=== PATIENT | male | born 1960 | race Caucasian/White ===

== ENCOUNTER 2021-05-07 10:58 | Day surgery (SDC) | payer BC ==
[~2021-05-07] VITALS: Ht 193 cm; Wt 150.0 kg
[~2021-05-07 10:58] MED LIST: AMIO200T6 PO; APIX5TAB PO; CITA20TA6 PO; ERGO800010 PO; IV RINGERS,LACTATED 1000ML 1,000 ML IV SCH; LISI-517 PO; METO-247 PO
[2021-05-07 11:36] VITALS: BP 102/58
[2021-05-07 11:51] LABS: HEMATOCRIT 41.1 % (39.0-53.0); HEMOGLOBIN 14.3 g/dL (13.0-17.5); RED BLOOD COUNT 4.34 x10^6/uL (4.30-5.70); RED CELL DISTRIBUTION WIDTH 13.4 % (11.5-14.5); WHITE BLOOD COUNT 4.3 x10^3/uL (4.0-11.0)
--- NOTE | 2021-05-07 11:55 | EKG ---
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
[2021-05-07 12:09] LABS: CALCIUM 8.2 mg/dL (8.5-10.1); CREATININE 1.3 mg/dL (0.7-1.3); GFR 56.3; POTASSIUM 4.1 mmol/L (3.5-5.1)
--- NOTE | 2021-05-07 12:58 | PDOC4 ---
Procedure Note Procedure: External cardioversion Indications: Atrial fibrillation Complications: None Procedural Details: And informed consent was obtained from patient. Anesthesiology team administered intravenous propofol for deep sedation. Patient was then given 200 J of synchronized biphasic DC shock therapy with successful conversion of rhythm from atrial fibrillation to sinus rhythm. He tolerated the procedure well. He was hemodynamically stable without any neurological deficits at the end of procedure. Conclusions: Successful external cardioversion of patient rhythm from atrial fibrillation to sinus rhythm. QUYNH CARVALHO MD May 07, 2021 12:58
[2021-05-07 13:29] VITALS: BP 89/59
[2021-05-07] MEDS ORDERED: PROPOFOL 10 MG/ML (20ML) VIAL. IV ONE (13:54)
[2021-05-07] MEDS ORDERED: LIDOCAINE 2% PF 5 ML VIAL. ONE (13:54)
== END 2021-05-07 13:50 | disposition home or self-care (01) ==
LOC: SURG 10:58
PROVIDERS: ATTEND Internal Medicine Cardiovascular Disease
DX: I48.91 Unspecified atrial fibrillation (principal); I10 Essential (primary) hypertension; G47.30 Sleep apnea, unspecified; E66.9 Obesity, unspecified; K21.9 Gastro-esophageal reflux disease without esophagitis; F41.9 Anxiety disorder, unspecified; F32.9 Major depressive disorder, single episode, unspecified; Z72.89 Other problems related to lifestyle; Z79.899 Other long term (current) drug therapy; Z98.890 Other specified postprocedural states
CPT/HCPCS: 36415; 80048; 85027; 85610; 85730; 92960; 93005; J2704

== ENCOUNTER 2021-06-07 08:57 | Outpatient (CLI) | payer BC ==
[2021-06-07] VITALS (12 sets, daily range): BP systolic 100–113; BP diastolic 60–74
[~2021-06-07] VITALS: Ht 188 cm; Wt 142.7 kg
[~2021-06-07 08:57] MED LIST changes: +AMIO200T53 PO; -AMIO200T6 PO; -IV RINGERS,LACTATED 1000ML 1,000 ML IV SCH; -LISI-517 PO; +LISI5TAB15 PO
--- NOTE | 2021-06-07 09:36 | PDOC ---
MODERATE SEDATION ASSESSMENT RISKS/ALTERNATIVES Risks/Alternatives Risks and alternatives of this type of sedation and procedure discussed with: RISK/ALTERNATIVES: Patient H & P ON CHART H & P H & P on chart and reviewed for co-morbid conditions and appropriate labs. H&P ON CHART: Yes STATUS PREG STATUS ASSESSED: N/A MEDS/ALLERGIES REVIEWED Meds/Allergies Reviewed Medications and Allergies including time and route of recently administered narcotics and sedatives. MEDS/ALLERGIES REVIEWED: Yes ASA RATING ASA RATING: II AIRWAY ASSESSMENT Airway Assessment Airway patency, oral function limitations, presence of caps, crowns, dentures, partials, and ability to extend neck assessed. AIRWAY ASSESSMENT: Yes MALLAMPATI SCORE MALLAMPATI SCORE: II PRE-SEDATION ASSESSMENT PRE-SEDATION ASSESSMENT: Yes QUYNH CARVALHO MD Jun 07, 2021 09:36
[2021-06-07] MEDS ORDERED: LIDOCAINE 1% PF 2 ML VIAL. ONE (09:39)
[2021-06-07] MEDS ORDERED: IODIXANOL 320 MG/ML 100 ML VIAL. ONE (09:39)
[2021-06-07] MEDS ORDERED: fentaNYL PF VIAL 100 MCG/2 ML VIAL ONE (09:53)
[2021-06-07] MEDS ORDERED: NITROGLYCERIN 200 MCG/2 ML SYRINGE FOR CATH/VASC LAB. ONE (09:53)
[2021-06-07] MEDS ORDERED: HEPARIN for IV BOLUS 10,000 UNIT/10 ML VIAL. ONE (09:53)
[2021-06-07] MEDS ORDERED: MIDAZOLAM HCL/PF 2 MG/2 ML VIAL. ONE ×2 (09:53→10:12)
[2021-06-07] MEDS ORDERED: VERAPAMIL 5 MG/2 ML VIAL. ONE (09:53)
[2021-06-07] MEDS ORDERED: LIDOCAINE 1% Multi-Dose 20 ML VIAL. ONE ×2 (10:29)
[2021-06-07] MEDS ORDERED: LIDOCAINE 1% PF 2 ML VIAL. INJ ONE (10:30)
[2021-06-07] MEDS ORDERED: fentaNYL PF VIAL 100 MCG/2 ML VIAL IV ONE (10:30)
[2021-06-07] MEDS ORDERED: HEPARIN for IV BOLUS 10,000 UNIT/10 ML VIAL. IART ONE (10:30)
[2021-06-07] MEDS ORDERED: MIDAZOLAM HCL/PF 2 MG/2 ML VIAL. IV ONE (10:30)
[2021-06-07] MEDS ORDERED: VERAPAMIL 5 MG/2 ML VIAL. IART ONE (10:30)
[2021-06-07] MEDS ORDERED: NITROGLYCERIN 200 MCG/2 ML SYRINGE FOR CATH/VASC LAB. IART ONE (10:30)
[2021-06-07] MEDS ORDERED: CONTRAST GIVEN. MC PRN (10:30)
[2021-06-07] MEDS ORDERED: IODIXANOL 320 MG/ML 100 ML VIAL. IART ONE (10:30)
[2021-06-07] MEDS ORDERED: LIDOCAINE 1% Multi-Dose 20 ML VIAL. INJ ONE (10:45)
[2021-06-07] MEDS ORDERED: IV 1/2 NORMAL SALINE 1,000 ML IV SCH (11:00)
--- NOTE | 2021-06-07 11:23 | CARD ---
MR#: [id number] Date of Study: 06/07/2021 Ordering Physician: QUYNH CARVALHO, Referring Physician: QUYNH CARVALHO Tech: RT Deanne(R) APPROVED REPORT Technologist: RT Deanne(R) Nurse: Alexus Harris RN Procedure(s) performed: Left heart catheterization, selective coronary angiography and left ventricul ography FL TIME: 12.3 MIN DOSE: 131 GYCM2 CONTRAST: 128 ML MODERATE SEDATION: 53 MINUTES INDICATION The indication(s) include : Atrial fibrillation, dyspnea on exertion and positive stress test. [facility] Clinical Frailty Scale [facility] Clinical Frailty Scale: Mildly Frail Heart Failure Heart Failure: No CASE TECHNIQUE IV conscious sedation was used throughout procedure with appropriate monitoring and was performed in the presence of a registered nurse who was an independent trained observer other than the physician p erforming the procedure. During this case, Fluoroscopy and low osmolar contrast were used for imaging . Specimen(s) Removed: No Estimated Blood loss: 15 cc's. PROCEDURE NARRATIVE After explaining the risk, benefits and alternative options, informed consent was obtained from patie nt. Patient was brought to the cardiac Urban Planner and his right wrist was prepped and draped in the us ual fashion after confirming a positive modified Ar's test. Vascular ultrasound guidance was used to obtain access in the right radial artery and 6 Prydeinig sheath was inserted. Several attempts to a dvance catheters including 6 Prydeinig Serjio, 6 Prydeinig JL 3.5 and 6 Prydeinig pigtail catheter into the asc ending aorta were unsuccessful despite different techniques secondary to bovine arch. Hence we decid ed to access the right common femoral artery. The skin and subcutaneous tissues of the previously pr epped and draped right groin were infiltrated with 20 cc of 2% lidocaine for local anesthesia. 6 Trav nvh JL4 6 Prydeinig JR4 catheters were used to perform selective angiography of the left and right coron jono arteries. 6 Prydeinig pigtail catheter was used to perform left ventriculography. Patient tolerate d the procedure well. Hemostasis was achieved using Mynx closure device. There were no immediate co mplications. FINDINGS 1. Hemodynamics: Elevated left ventricular end-diastolic pressure 25mmHg consistent with acute on ch ronic diastolic heart failure. No pullback gradient across aortic valve. 2. Left ventriculography: Normal left ventricular systolic function with ejection fraction estimated at 55%. No significant mitral regurgitation seen. 3. Coronary angiography: a. The left main coronary artery arose from the left sinus of Valsalva, gave rise to the left anteri or descending and left circumflex arteries and did not show any significant stenosis. b. The left anterior descending artery did not show any significant stenosis. c. The left circumflex artery did not show any significant stenosis. d. The right coronary artery was a large and dominant vessel arising from the right sinus of Valsalv a that did not show any significant stenosis. Conclusion 1. No significant coronary artery disease 2. Normal left ventricular systolic function with ejection fraction estimated at 55%. Recommendations Cardiovascular risk factor modification Signed by : Quynh Carvalho, Electronically Approved : 06/07/2021 11:23:22
--- NOTE | 2021-06-07 13:55 | NUR ---
Discharge Note: BOBBY ORTIZ Discharge instructions and discharge home medications reviewed with Patient and a copy given. All questions have been answered and understanding verbalized. Dressing to R groin dry and intact. Dressing to R wrist, dry and intact, armboard in place The following instructions and handouts were given: groin site care, radial site care, sedation, angioseal informaton booklet Information from Cardiology office regarding holter monitor given to pt Discontinued lines and drains: Peripheral IV intact. Patient discharged to Home or Self Care with Friend via Wheelchair JONATHON TURK
== END 2021-06-07 13:55 | disposition home or self-care (01) ==
LOC: CCL 08:57
PROVIDERS: ATTEND Internal Medicine Cardiovascular Disease
DX: I48.91 Unspecified atrial fibrillation (principal); R06.09 Other forms of dyspnea; R94.39 Abnormal result of other cardiovascular function study; I10 Essential (primary) hypertension; G47.30 Sleep apnea, unspecified; E66.9 Obesity, unspecified; K21.9 Gastro-esophageal reflux disease without esophagitis; F41.9 Anxiety disorder, unspecified; F32.9 Major depressive disorder, single episode, unspecified; Z72.89 Other problems related to lifestyle; Z79.899 Other long term (current) drug therapy; Z98.890 Other specified postprocedural states
CPT/HCPCS: 76937; 93458; 99152; 99153; C1760; C1769; C1894; J1644; J2250; J3010; J3490; Q9967; G0269

== ENCOUNTER 2021-07-23 06:54 | Observation (INO) | payer BC ==
[2021-07-23] VITALS (19 sets, daily range): BP systolic 86–121; BP diastolic 53–74
[~2021-07-23] VITALS: Ht 193 cm; Wt 145.5 kg
[2021-07-23] MEDS ORDERED: LIDOCAINE 2%/EPI 1:100,000 20 ML VIAL. ONE (07:44)
[2021-07-23] MEDS ORDERED: ceFAZolin SODIUM 3 GM in IV DEXTROSE 5% 100ML 100 ML IV ONE (08:00)
[2021-07-23 08:03] LABS: CALCIUM 8.2 mg/dL (8.5-10.1); CREATININE 1.3 mg/dL (0.7-1.3); GFR 56.3; POTASSIUM 4.2 mmol/L (3.5-5.1)
[2021-07-23 08:06] LABS: HEMATOCRIT 39.2 % (39.0-53.0); HEMOGLOBIN 13.2 g/dL (13.0-17.5); RED BLOOD COUNT 4.32 x10^6/uL (4.30-5.70); RED CELL DISTRIBUTION WIDTH 14.5 % (11.5-14.5)
[2021-07-23] MEDS ORDERED: fentaNYL PF VIAL 100 MCG/2 ML VIAL ONE (08:08)
[2021-07-23] MEDS ORDERED: MIDAZOLAM HCL/PF 5 MG/5 ML VIAL. ONE (08:08)
[2021-07-23] MEDS ORDERED: ceFAZolin SODIUM 1 GM in IV NORMAL SALINE 100ML 100 ML IRR ONE (08:15)
[2021-07-23 08:20] LABS: PROTHROMBIN TIME PATIENT 13.1 SEC (11.7-14.0)
[2021-07-23] MEDS ORDERED: fentaNYL PF VIAL 100 MCG/2 ML VIAL IV ONE (08:30)
[2021-07-23] MEDS ORDERED: LIDOCAINE 2%/EPI 1:100,000 20 ML VIAL. IJ ONE (08:30)
[2021-07-23] MEDS ORDERED: MIDAZOLAM HCL/PF 5 MG/5 ML VIAL. IV ONE (08:30)
--- NOTE | 2021-07-23 08:33 | EKG ---
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
--- NOTE | 2021-07-23 09:41 | PDOC ---
MODERATE SEDATION ASSESSMENT RISKS/ALTERNATIVES Risks/Alternatives Risks and alternatives of this type of sedation and procedure discussed with: RISK/ALTERNATIVES: Patient H & P ON CHART H & P H & P on chart and reviewed for co-morbid conditions and appropriate labs. H&P ON CHART: Yes STATUS PREG STATUS ASSESSED: N/A MEDS/ALLERGIES REVIEWED Meds/Allergies Reviewed Medications and Allergies including time and route of recently administered narcotics and sedatives. MEDS/ALLERGIES REVIEWED: Yes ASA RATING ASA RATING: III AIRWAY ASSESSMENT Airway Assessment Airway patency, oral function limitations, presence of caps, crowns, dentures, partials, and ability to extend neck assessed. AIRWAY ASSESSMENT: Yes MALLAMPATI SCORE MALLAMPATI SCORE: II PRE-SEDATION ASSESSMENT PRE-SEDATION ASSESSMENT: Yes QUYNH CARVALHO MD Jul 23, 2021 09:41
--- NOTE | 2021-07-23 10:51 | CARD ---
MR#: [id number] Date of Study: 07/23/2021 Ordering Physician: EDDIE MCMULLEN, Referring Physician: EDDIE MCMULLEN, Tech: APPROVED REPORT PROCEDURES Implantation of Medtronic dual-chamber permanent pacemaker FLURO TIME: 5.0 MINUTES DOSE: 74 Gycm2 MODERATE SEDATION: 60 MINUTES INDICATIONS Sick sinus syndrome with severe symptomatic bradycardia PROCEDURE After explaining the risks, benefits, and alternative options, informed consent was obtained from the patient. The patient was brought to the cardiac catheterization lab and the left chest and shoulder were prepp ed and draped in a sterile manner. IV conscious sedation was used throughout procedure with appropriate monitoring and was performed in the presence of a registered nurse who was an independent trained observer other than the physician p erforming the procedure. Specimen(s) Removed: No Estimated Blood loss: 15 cc's. 30 cc of 2% lidocaine was infiltrated into the skin and subcutaneous tissues for local anesthesia. A n incision was made over the left infraclavicular fossa and using blunt dissection and cautery a pock et was created. Venous access was obtained in the left subclavian vein and 7 and 9 Sloven[place] sheaths in serted. A Medtronic bipolar active fixation right ventricular lead model 280269, serial number [id number] wa s advanced under fluoroscopic guidance and the tip was positioned in the right ventricular apex. Sub sequently, a Medtronic bipolar active fixation right atrial lead model 358543, serial number [id number] was positioned in the right atrial appendage under fluoroscopic guidance. The leads were secured into place and were attached to a Medtronic dual-chamber permanent pacemaker generator model W3 DR 0 1, serial number [id number]. This was placed in the pocket that was subsequently closed in 3 layers. Hemostasis was secured. The right ventricular lead showed a sensing amplitude of 7.3 mV, impedance of 999 ohms and a threshol d of 0.7 V. The right atrial lead showed a sensing amplitude of 4.7 mV, impedance of 752 ohms and a threshold of 1.4 V. Patient tolerated the procedure well. There were no immediate complications. CONCLUSION Successful implantation of Medtronic dual-chamber permanent pacemaker for sick sinus syndrome with se rosana symptomatic bradycardia. Signed by : Eddie Mcmullen, Electronically Approved : 07/23/2021 10:50:52
--- NOTE | 2021-07-23 11:15 | RAD ---
EXAMINATION: Chest radiograph. VIEWS: Single AP view of the chest COMPARISON: 10/29/2020 INDICATION:61 years, Male, post pacemaker placement. FINDINGS: Stable borderline enlarged cardiomediastinal silhouette. Left cardiac pacing device is in normal posi tion. Increased left subpleural reticulations. Bibasilar opacities, left greater than right favors salgado bsegmental atelectasis. No pneumothorax or pleural effusion. No acute osseous process. IMPRESSION: 1. Interval placement of left chest cardiac pacing device with no immediate postprocedural complicati on. 2. Increased subpleural reticulations favors mild interstitial pulmonary edema with likely bibasilar subsegmental atelectasis. Electronically signed by: Joey Crocker DO (07/23/2021 11:13 AM) [id number]
--- NOTE | 2021-07-23 14:45 | NUR ---
Report given to Nitin RN, patient received dual chamber pacemaker this a.m. Patient's left arm is in an immobilizer and dressing is clean,dry,intact. No pain noted, Medtronic rep going to patient's bedside to provide education.
[2021-07-23] MEDS ORDERED: ASPIRIN 325 MG TABLET PO ONE (20:00)
[2021-07-23] MEDS: oxyCODONE/APAP 5/325 1 TAB TABLET PO PRN (20:14)
[2021-07-24 08:44] VITALS: BP 117/82
[2021-07-24] MEDS: oxyCODONE/APAP 5/325 1 TAB TABLET PO PRN (08:53)
--- NOTE | 2021-07-24 10:43 | NUR ---
pt returned from radiology post chest xray. pt tolerated well. immobilizer intact on left arm. 100% av paced
[2021-07-24 11:00] VITALS: BP 125/83
[2021-07-24] MEDS ORDERED: APIXABAN 5 MG TABLET. PO SCH (12:00)
[2021-07-24] MEDS ORDERED: LISINOPRIL 5 MG TABLET. PO SCH (12:00)
[2021-07-24 12:26] VITALS: BP 125/83
--- NOTE | 2021-07-24 12:49 | NUR ---
SS following for discharge planning. SS reviewed pt chart and discussed with RN. Pt is from home and is currently on room air. Cardiology following. Pt had pacemaker placement on 07/23/2021. Probable discharge to home today. SS will continue to follow for discharge planning.
--- NOTE | 2021-07-24 13:13 | PDOC3 ---
CHERYL HAWK DEPOSITION REPORTER 07/24/21 1313: Discharge Summary Visit Information Date of Admission: Jul 23, 2021 Date of Discharge: Jul 24, 2021 Admitting Diagnosis: symptomatic SSS and bradycardia, PAFIB, HTN Final Diagnosis symptomatic SSS and bradycardia, PAFIB, HTN, S/P PPM Brief Hospital Course Allergies Allergies Coded Allergies Type Severity Reaction Last Updated Verified No Known Drug Allergies 05/07/21 No Vital Signs Vital Signs Date Time Temp Pulse Resp B/P (MAP) Pulse Ox O2 Delivery O2 Flow Rate FiO2 07/24/21 12:26 60 125/83 07/24/21 11:00 98.3 16 94 Room Air 98.3 07/23/21 20:14 2.0 Lab Results Laboratory Tests Test 07/23/21 07:44 White Blood Count 5.0 x10^3/uL (4.0-11.0) Red Blood Count 4.32 x10^6/uL (4.30-5.70) Hemoglobin 13.2 g/dL (13.0-17.5) Hematocrit 39.2 % (39.0-53.0) Mean Corpuscular Volume 91 fL (79-100) Mean Corpuscular Hemoglobin 31 pg (25-35) Mean Corpuscular Hemoglobin Concent 34 g/dL (31-37) Red Cell Distribution Width 14.5 % (11.5-14.5) Platelet Count 195 x10^3/uL (140-400) Prothrombin Time 13.1 SEC (11.7-14.0) Prothromb Time International Ratio 1.0 (0.8-1.1) Sodium Level 139 mmol/L (136-145) Potassium Level 4.2 mmol/L (3.5-5.1) Chloride Level 104 mmol/L (98-107) Carbon Dioxide Level 28 mmol/L (21-32) Anion Gap 7 (6-14) Blood Urea Nitrogen 25 mg/dL (8-26) Creatinine 1.3 mg/dL (0.7-1.3) Estimated GFR (Cockcroft-Gault) 56.3 Glucose Level 101 mg/dL (70-99) Calcium Level 8.2 mg/dL (8.5-10.1) Brief Hospital Course Mr. Suarez is a 61 yo male admitted for planned pacemaker placement. He had a successful implantation of Medtronic dual-chamber permanent pacemaker for sick sinus syndrome with severe symptomatic bradycardia. He tolerated the procedure well without immediate complications. Repeat interrogation revealed normal functioning device. Surgical pain is controlled with no chest pain or SOA. Left chest incision is intact without erythema, swelling and drain with steristrips. Neurovascular status to LUE intact. Sling in place. Post PPM instructions reviewed. VSS and presently AV paced. AOx3. LSCTA, Obese, abd soft and nontender and no significant peripheral edema. No changes to current medication regimen. Discharge Information Condition at Discharge: Stable Follow Up: Weeks (2) Disposition/Orders: D/C to Home Scheduled Amiodarone Hcl (Amiodarone Hcl) 200 Mg Tablet, 1 TAB PO HS for a-fib, #90 Ref 1 (Reported) Entered as Reported by: Enzo Paris on 10/29/20 1711 Last Taken: Unknown Dose on 07/22/21 Last Action: Continued on 07/24/21 1130 by NAKITA AJVIER APRN Apixaban (Eliquis) 5 Mg Tablet, 5 MG PO BID for a-fib, (Reported) Entered as Reported by: Enzo Paris on 10/29/20 110 Last Taken: Unknown Dose on 07/20/21 Last Action: Continued on 07/24/21 1130 by NAKITA JAVIER APRN Citalopram Hydrobromide (Citalopram Hbr) 20 Mg Tablet, 1 TAB PO HS for mood, #30 Ref 5 (Reported) Entered as Reported by: Enzo Paris on 10/29/20 110 Last Taken: Unknown Dose on 07/22/21 Last Action: Continued on 07/24/21 1130 by NAKITA JAVIER APRN Ergocalciferol (Vitamin D2) (Ergocalciferol) 200 Mcg/1 Ml Drops, 1,250 MCG PO QWE for bone health, (Reported) Entered as Reported by: Enzo Paris on 10/29/20 110 Last Taken: Unknown Dose on 07/22/21 Last Action: Converted on 07/24/21 1130 by NAKITA JAVIER APRN Lisinopril (Lisinopril) 5 Mg Tablet, 1 TAB PO DAILY for blood pressure, #30 Ref 5 (Reported) Entered as Reported by: Enzo Paris on 10/29/20 1105 Last Taken: Unknown Dose on 07/22/21 Last Action: Continued on 07/24/21 1130 by NAKITA JAVIER APRN Metoprolol Succinate (Metoprolol Succinate ( Xl )) 100 Mg Tab.er.24h, 50 MG PO HS for FOR HYPERTENSION, #30 Ref 0 (Reported) Entered as Reported by: PRITI ABEL on 05/06/21 1524 Last Taken: Unknown Dose on 07/22/21 Last Action: Continued on 07/24/21 1130 by NAKITA JAVIER APRN Patient Instructions Patient Instructions Must know & what to expect after device implant: 1. Your surgical dressing should be removed prior to discharge from the hospital, but allow the steri- strips to fall off naturally. 2. Activity restrictions: DO NOT raise arm above shoulder level, lift anything heavier than a gallon of milk, and no push or pull motions such as vacuuming/lawn mowing, no swinging motions (golf), etc for 4 weeks. 3. It is OK to use a cell phone or other electronic devices just be sure you do not store it in a breast pocket on the side where the device was placed. 4. Device will be interrogated prior to your discharge from the hospital and then every 3 months for defibrillators and every 6 months for pacemakers. You may be asked to have your device checked remotely from home as well, but this will depend on your particular physicians preference. 5. You may remove the arm immobilizer the day after device placement. Wear the arm immobilizer/splint at night (during sleep times) for 2 week to prevent unintended arm movement that can cause lead dislodgement. 6. Do not drive for one week as the task of driving may lead to unintended arm motion that may cause lead dislodgement. The seatbelt will also rub against the incision site & cause irritation. 7. It is our recommendation that you utilize Tylenol at home for pain control. You need to call our office if you are having uncontrollable pain at the incision site. 8. Keep your incision clean and dry. It is OK to shower. DO NOT submerge in bath, pool, or hot tub, until cleared by your doctor, as this could lead to increase risk of infection.. It is OK to use regular soap just do not scrub the incision site. Water spray from shower should not directly hit the incision. Be sure to blot dry not rub. 9. Inspect your incision daily. If you notice any increased redness, swelling, or drainage, or if you start running a fever, call the office immediately. The number is [phone]. 10. For women, if you need to protect against irritation from the bra straps, you can place a piece of gauze over the incision site for cushion. Please be sure to tape it loosely to allow air to the site & remove the gauze when you remove the bra. 11. Be sure to carry your device identification information card in your wallet/purse at all times. 12. It is OK to go through security at the airport with your device, but be sure to let the TSA know prior to proceeding as the security settings change depending on varying factors. Please do whatever is requested by security at that time. 13. Some of the newer devices may be MRI compatible but, currently, the use of these devices is not widespread, so you likely will not be able to have an MRI. Please clarify this with your physician. If at any time, you feel lightheaded or dizzy/faint, stop what you are doing & lie down immediately. If you are driving, get to the side of the road quickly, turn your car off & call 911 on your cell phone. DO NOT continue to drive as this may cause an accident that seriously injures yourself &/or others. Call the office at [phone] for any questions or concerns. Justicifation of Admission Dx: Justifications for Admission: Justification of Admission Dx: Yes QUYNH CARVALHO MD 07/24/212126: Discharge Summary Brief Hospital Course Brief Hospital Course Agree with HEALTH AND WELLNESS SALES CONSULTANT's assessment and plan. Patient underwent successful PPM implantation yesterday for symptomatic SSS. CXR did not show any pneumothorax, incision looked good and patient hemodynamically stable. DC home today and follow up as scheduled Discharge Information Scheduled Amiodarone Hcl (Amiodarone Hcl) 200 Mg Tablet, 1 TAB PO HS for a-fib, #90 Ref 1 (Reported) Entered as Reported by: Enzo Paris on 10/29/20 1711 Last Taken: Unknown Dose on 07/22/21 Last Action: Continued on 07/24/21 1130 by NAKITA JAVIER APRN Apixaban (Eliquis) 5 Mg Tablet, 5 MG PO BID for a-fib, (Reported) Entered as Reported by: Enzo Paris on 10/29/201104 Last Taken: Unknown Dose on 07/20/21 Last Action: Continued on 07/24/211129 by NAKITA JAVIER APRN Citalopram Hydrobromide (Citalopram Hbr) 20 Mg Tablet, 1 TAB PO HS for mood, #30 Ref 5 (Reported) Entered as Reported by: Enzo Paris on 10/29/201104 Last Taken: Unknown Dose on 07/22/21 Last Action: Continued on 07/24/211129 by NAKITA JAVIER APRN Ergocalciferol (Vitamin D2) (Ergocalciferol) 200 Mcg/1 Ml Drops, 1,250 MCG PO QWE for bone health, (Reported) Entered as Reported by: Enzo Paris on 10/29/201104 Last Taken: Unknown Dose on 07/22/21 Last Action: Converted on 07/24/211129 by NAKITA JAVIER APRN Lisinopril (Lisinopril) 5 Mg Tablet, 1 TAB PO DAILY for blood pressure, #30 Ref 5 (Reported) Entered as Reported by: Enzo Paris on 10/29/201104 Last Taken: Unknown Dose on 07/22/21 Last Action: Continued on 07/24/211129 by NAKITA JAVIER APRN Metoprolol Succinate (Metoprolol Succinate ( Xl )) 100 Mg Tab.er.24h, 50 MG PO HS for FOR HYPERTENSION, #30 Ref 0 (Reported) Entered as Reported by: PRITI ABEL on 05/06/21 1524 Last Taken: Unknown Dose on 07/22/21 Last Action: Continued on 07/24/211129 by SUZANNE RENDON JHUNNE M APRN Jul 24, 2021 13:13 QUYNH CARVALHO MD Jul 24, 2021 21:27
--- NOTE | 2021-07-24 15:18 | RAD ---
Single view of the chest. 07/24/2021 10:29 AM Indication: Reason: 1 DAY POST PACEMAKER / Spl. Instructions: / History: Comparison: Chest radiograph, yesterday Findings: There is a dual-lead pacemaking device from a left subclavian approach, grossly stable. No pneumothorax is identified. Mild diffuse interstitial coarsening is similar. Heart size is mildly enl arged. No acute osseous changes are noted in the interim. IMPRESSION: 1.Grossly stable radiographic appearance of the chest 2. Mild diffuse interstitial thickening. Mild cardiomegaly. Electronically signed by: Naveen Joseph MD (07/24/2021 3:16 PM) [id number]
[2021-07-24] MEDS ORDERED: ERGOCALCIFEROL (VITAMIN D2) 50,000 UNIT CAPSULE. PO SCH (16:00)
[2021-07-24] MEDS ORDERED: AMIODARONE HCL 200 MG TABLET. PO SCH (21:00)
[2021-07-24] MEDS ORDERED: CITALOPRAM 20 MG TABLET. PO SCH (21:00)
[2021-07-24] MEDS ORDERED: METOPROLOL SUCC 24HR ER 50 MG TAB.ER.24H. PO SCH (21:00)
== END 2021-07-24 14:00 | disposition home or self-care (01) ==
LOC: CCL 06:54 → INTOOBSV 14:42 → 1 WEST ICU 14:42
PROVIDERS: ADMIT Internal Medicine Cardiovascular Disease; ATTEND Internal Medicine Cardiovascular Disease
DX: I49.5 Sick sinus syndrome (principal); I10 Essential (primary) hypertension; I48.0 Paroxysmal atrial fibrillation; Z45.018 Encounter for adjustment and management of other part of cardiac pacemaker; E66.9 Obesity, unspecified; Z79.01 Long term (current) use of anticoagulants; Z79.899 Other long term (current) drug therapy; Z68.39 Body mass index [BMI] 39.0-39.9, adult
CPT/HCPCS: 33208; 36415; 71045; 71046; 80048; 85027; 85610; 93005; 96365; 99152; 99153; C1785; G0378; G0379; J0690; J2250; J3010; J3490; J7060